=== PATIENT | male | born 1980 | race Two or more races ===

== ENCOUNTER 2019-01-17 13:13 | Emergency (ER) | payer OTHER ==
[~2019-01-17] VITALS: Ht 175.3 cm; Wt 98.4 kg
[2019-01-17 13:51] VITALS: BP 139/83
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
[2019-01-17] MEDS ORDERED: Acetaminophen 500mg (ES) tab ORAL ONE (14:45)
[2019-01-17] MEDS ORDERED: TYLENOL EXTRA500 MG ORAL (14:51)
[2019-01-17] MEDS ORDERED: ROBAXIN-750750 MG PO (14:51)
[2019-01-17] MEDS ORDERED: LIDODERM700 M1 TOPIC (14:51)
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
[2019-01-17 15:24] VITALS: BP 139/83
--- NOTE | 2019-01-17 15:25 | NUR ---
ER DISCHARGE NOTE: Patient is cleared to be discharged per ERPA, pt is aox4, accompanied by cousin, on room air, with stable vital signs. pt was given dc and prescription instructions, pt was able to verbalize understanding, pt id band removed. pt is able to ambulate with steady gait. pt took all belongings.
== END 2019-01-17 15:26 | disposition home or self-care (01) ==
LOC: EMR 14:10
DX: S16.1XXA Strain of muscle, fascia and tendon at neck level, initial encounter (principal); S06.0X0A Concussion without loss of consciousness, initial encounter; T14.8XXA Other injury of unspecified body region, initial encounter; M79.602 Pain in left arm; M79.601 Pain in right arm; V43.52XA Car driver injured in collision with other type car in traffic accident, initial encounter; Y92.410 Unspecified street and highway as the place of occurrence of the external cause
CPT/HCPCS: 99282